=== PATIENT | female | born 1955 | race Caucasian/White ===

== ENCOUNTER → 2021-02-21 10:18 | Outpatient (CLI) | payer MEDICARE, OTHER, SELFPAY ==
--- NOTE | ~2021-02-21 | XR_ITS ---
XR shoulder RT min 2V DATE: 02/21/2021 10:37 INDICATION: Right shoulder pain TECHNIQUE: 4 views COMPARISON: None FINDINGS: Diffuse osteopenia. There is chronic right rotator cuff atrophy, the humeral head abutting and causing a chronic concave impression on the undersurface of the acromion process of the scapula. There is severe osteoarthritic change including joint space narrowing and prominent spurring at the g lenohumeral joint. No fracture or dislocation, periosteal reaction or bone destruction. No abnormal right shoulder soft tissue calcification is evident. IMPRESSION: Chronic rotator cuff atrophy Severe glenohumeral osteoarthritis Diffuse osteopenia Reviewed, dictated and finalized at location A.
== END ==
PROVIDERS: PCP Family Medicine; Visit Provider Family Medicine
DX: M85.811 Other specified disorders of bone density and structure, right shoulder (principal); M19.011 Primary osteoarthritis, right shoulder
CPT/HCPCS: 73030

== ENCOUNTER 2021-03-12 15:20 | Outpatient (CLI) | payer MEDICARE, OTHER, SELFPAY ==
--- NOTE | ~2021-03-12 | MM_ITS ---
EXAMINATION: MM screening robert BI w zari HISTORY: Screening TECHNIQUE: Craniocaudal and mediolateral oblique 3-D tomosynthesis images were obtained and synthetic 2-D images were generated. CAD analysis was submitted and interpreted. COMPARISON: 03/11/2017 BREAST PARENCHYMAL COMPOSITION: There are scattered areas of fibroglandular density. FINDINGS: There is no evidence of suspicious mass, calcification, or architectural distortion to sugg est malignancy in either breast. There has been no suspicious interval change. IMPRESSION: 1. No mammographic evidence of malignancy. 2. Recommend routine screening mammography in one year. BI-RADS Category 1: Negative Reviewed, dictated and finalized at location A.
== END 2021-03-12 15:21 | disposition home or self-care (01) ==
LOC: ANHIMG 15:26
PROVIDERS: PCP Family Medicine; Visit Provider Family Medicine
DX: Z12.31 Encounter for screening mammogram for malignant neoplasm of breast (principal)
CPT/HCPCS: 77063; 77067

== ENCOUNTER 2022-02-28 07:36 | Emergency (ER) | payer MEDICARE, OTHER, SELFPAY ==
--- NOTE | ~2022-02-28 | XR_ITS ---
XR elbow LT min 3V 02/28/2022 08:10 Indication: Left elbow pain after fall Procedure: 4 views left elbow Comparison: No prior studies for comparison. Findings: There is a possible nondisplaced radial head fracture. There is moderate joint effusion. No other fracture identified. No foreign bodies. Impression: 1: Possible nondisplaced radial head fracture. Recommend conservative therapy with follow-up x-rays i n 10-14 days as clinically indicated. Reviewed, dictated and finalized at location A. Impression: 1: Possible nondisplaced radial head fracture. Recommend conservative therapy w ith follow-up x-rays in 10-14 days as clinically indicated.
[2022-02-28 07:39] VITALS: BP 156/88; PULSE 82; RESP 16; TEMP 36.8; O2SAT 100
--- NOTE | 2022-02-28 08:32 | ED.UPPEXIN ---
HPI - Extremity Injury (Upper) General Chief Complaint: Extremity Injury, Upper Stated Complaint: fall left arm Time Seen by Provider: 02/28/22 07:49 Source: patient and RN notes reviewed Mode of arrival: ambulatory Limitations: no limitations History of Present Illness HPI narrative: This is a 67 year old right hand dominant female who presents for evaluation of left elbow pain s/p fall. PAtient states she accidentally fell last night. She hit her left cheek and fell onto her left arm. She denies headache or LOC. She reports pain to her left elbow. She is having difficulty extending her left arm at elbow. She has taken tylenol for her pain Related Data Home Medications Medication Instructions Recorded Confirmed calcium carbonate 600 mg-vitamin cap PO BID 02/20/21 03/07/21 D3 12.5 mcg (500 unit) capsule (Calcium 600 with Vitamin D3) acetaminophen 650 mg 650 mg PO Q12H 03/07/21 03/07/21 tablet,extended release (Tylenol Arthritis Pain) Allergies Allergy/AdvReac Type Severity Reaction Status Date / Time No Known Allergies Allergy Mild Verified 02/28/22 07:46 Review of Systems Review of Systems: All systems reviewed & are unremarkable except as noted in HPI and below Constitutional: Constitutional: Denies chills and Denies fatigue Musculoskeletal: Musculoskeletal: Reports arthralgias Integumentary/Breasts: Skin/Breast: Denies pruritus and Denies erythema Neurologic: Denies syncope, Denies headache(s) and Denies focal weakness PMFSH Past Medical History Medical History (Updated 02/28/22 @ 09:09 by Altagracia Tavares MD) Arthritis of right shoulder region Osteoarthritis (arthritis due to wear and tear of joints) Surgical History Surgical History History of bunionectomy History of hip replacement Family History Family History Mother Family history of osteoarthritis Family history of arthritis Grandparent Family history of cardiovascular disease Father Family history of lung cancer Family history of primary malignant neoplasm of liver Social History Social History Smoking status: Never smoker Second hand tobacco smoke exposure: No Alcohol intake: current Drinks per week: 1 Alcohol use details: wine Substance use: never Substance use type: does not use Gender identity (if verbalized by the patient): Female Spiritual care concerns: No Agree to blood products: Yes Exam Const: General: no acute distress and alert Nutritional Appearance: well nourished Orientation/consciousness: patient oriented x3 Limitations: no limitations HENMT: Head: normal to inspection General nose exam: Normal external nose present Face and sinus: normal facial exam Eyes: Pupils: Equal, round and reactive pupils present EOM: EOMs intact bilaterally Neck: Neck: normal visual inspection Chest: Chest palpation & inspection: normal inspection of the chest Resp: Effort & Inspection: normal respiratory effort Auscultation: clear to auscultation bilaterally Cardio: Rate: regular rate Rhythm: regular rhythm Heart sounds: no murmurs Skin: General skin exam: normal color Rashes: no rashes Wounds: no wounds Neuro: General: patient oriented x3, moves all extremities and CN's II-XI intact bilaterally Cranial nerves: Yes Nystagmus not present Extrem: Other: left elbow pain with supination and extension. mild left elbow swelling, no bruising,; strong radial pulse Psych: Mental Status: mental status grossly normal Affect: normal affect Attitude: cooperative Course Reevaluation(s) Reevaluation #1: I discussed with patient that she has been found to have nondisplaced radial head fracture. She has sen Dr. Diaz in the past and she would like to continue to see him. Dr. Diaz agrees to see patient next week. HE
== END 2022-02-28 09:17 | disposition home or self-care (01) ==
PROVIDERS: Emergency Provider General Practice; PCP Family Medicine
DX: S52.125A Nondisplaced fracture of head of left radius, initial encounter for closed fracture (principal); M19.011 Primary osteoarthritis, right shoulder; Z96.649 Presence of unspecified artificial hip joint; W19.XXXA Unspecified fall, initial encounter
CPT/HCPCS: 29125; 73080; 99284; A4565

== ENCOUNTER 2022-05-28 10:20 | Emergency (ER) | payer MEDICARE, OTHER, SELFPAY ==
[2022-05-28 10:34] VITALS: BP 151/91; PULSE 85; RESP 16; TEMP 36.8; O2SAT 99
--- NOTE | 2022-05-28 10:50 | ED.URI ---
HPI - URI/Sore Throat General Chief Complaint: Upper Respiratory Infection Stated Complaint: verify positive covid test Time Seen by Provider: 05/28/22 10:50 Source: patient and RN notes reviewed Mode of arrival: ambulatory Limitations: no limitations History of Present Illness HPI Narrative: 67 y/o female presented for c/o headache, sinus congestion, mild cough and fatigue for 2 days. She took a negative covid test at home yesterday, and a positive home covid test today. States she wanted to confirm results. Denies sob, wheezing, n/v/d. MD elicited complaint: cough Related Data Home Medications Medication Instructions Recorded Confirmed calcium carbonate 600 mg-vitamin 1 cap PO BID 02/20/21 05/28/22 D3 12.5 mcg (500 unit) capsule (Calcium 600 with Vitamin D3) acetaminophen 650 mg 650 mg PO Q12H 03/07/21 05/28/22 tablet,extended release (Tylenol Arthritis Pain) Allergies Allergy/AdvReac Type Severity Reaction Status Date / Time No Known Allergies Allergy Mild Verified 05/28/22 10:42 Review of Systems Review of Systems: CONSTITUTIONAL: Endorses malaise, chills, sweats, fever EYES: Denies visual changes, redness, or discharge ENT: Per HPI CARDIOVASCULAR: Denies chest pain, palpitations, edema RESPIRATORY: Denies dyspnea GASTROINTESTINAL: Denies abdominal pain, nausea, vomiting, diarrhea SKIN: Denies rash or itching MUSCULOSKELETAL: Endorses myalgia NEUROLOGIC: reports headache PMFSH Past Medical History Medical History Arthritis of right shoulder region Osteoarthritis (arthritis due to wear and tear of joints) Surgical History Surgical History History of bunionectomy History of hip replacement Family History Family History Mother Family history of osteoarthritis Family history of arthritis Grandparent Family history of cardiovascular disease Father Family history of lung cancer Family history of primary malignant neoplasm of liver Social History Social History Smoking status: Never smoker Second hand tobacco smoke exposure: No Alcohol intake: current Drinks per week: 1 Alcohol use details: wine Substance use: never Substance use type: does not use Gender identity (if verbalized by the patient): Female Spiritual care concerns: No Agree to blood products: Yes Exam Narrative: GENERAL: Ill-appearing, nontoxic EYES: PERRLA, conjunctivae clear ENT: Mucous membranes moist. TMs pearly carrasquillo with normallight reflex bilaterally; no tragal tenderness. Oropharynx erythematous without lesions or exudate, no drooling, no hoarseness, no trismus, uvula midline. NECK: Supple. No lymphadenopathy CHEST: Clear to auscultation, breath sounds equal. HEART: Regular rate and rhythm. No murmur heard. SKIN: Warm, dry, no rash. NEURO: Alert and oriented x3. PSYCH: Normal mood and affect Course Course Emergency Course: Patient is aware of diagnosis, understands and agrees to treatment plan. Anticipatory guidance given. Patient agrees to follow-up as directed and is aware of reasons to seek care at the emergency department. Portions of this record may have been created with voice recognition software Level of Care: Express Care Visit Vital Signs Vital signs: Vital Signs Temperature 98.3 F 05/28/22 10:34 Pulse Rate 85 05/28/22 10:34 Respiratory Rate 16 05/28/22 10:34 Blood Pressure 151/91 H 05/28/22 10:34 Pulse Oximetry 99 05/28/22 10:34 Temperature 98.3 F 05/28/22 10:34 Pulse Rate 85 05/28/22 10:34 Respiratory Rate 16 05/28/22 10:34 Blood Pressure 151/91 H 05/28/22 10:34 Pulse Oximetry 99 05/28/22 10:34 reviewed MDM - URI/Sore Throat MDM Narrative Medical decision making narrative: Covid positive. Resul
== END 2022-05-28 11:00 | disposition home or self-care (01) ==
PROVIDERS: Emergency Provider Nurse Practitioner Family
DX: U07.1 COVID-19 (principal); M19.011 Primary osteoarthritis, right shoulder; Z96.649 Presence of unspecified artificial hip joint
CPT/HCPCS: 87426; 99213; C9803; G0463

== ENCOUNTER 2022-06-28 09:27 | Outpatient (CLI) | payer MEDICARE, OTHER, SELFPAY ==
--- NOTE | ~2022-06-28 | MM_ITS ---
EXAMINATION: MM screening robert BI w zari HISTORY: Screening mammogram TECHNIQUE: Craniocaudal and mediolateral oblique 3-D tomosynthesis images were obtained and synthetic 2-D images were generated. CAD analysis was submitted and interpreted. COMPARISON: 03/12/2021, 03/11/2017 bilateral screening mammogram examinations BREAST PARENCHYMAL COMPOSITION: There are scattered areas of fibroglandular density. FINDINGS: There is no evidence of suspicious mass, calcification, or architectural distortion to sugg est malignancy in either breast. There has been no suspicious interval change. IMPRESSION: 1. No mammographic evidence of malignancy. 2. Recommend routine screening mammography in one year. BI-RADS Category 1: Negative Reviewed, dictated and finalized at location A. [employer]
== END 2022-06-28 09:28 | disposition home or self-care (01) ==
LOC: ANHIMG 09:29
PROVIDERS: PCP Family Medicine; Visit Provider Family Medicine
DX: Z12.31 Encounter for screening mammogram for malignant neoplasm of breast (principal)
CPT/HCPCS: 77063; 77067

== ENCOUNTER 2024-03-01 08:54 | Outpatient (CLI) | payer MEDICARE, OTHER, SELFPAY ==
--- NOTE | ~2024-03-01 | MM_ITS ---
EXAMINATION: MM screening robert BI w zari HISTORY: Screening TECHNIQUE: Craniocaudal and mediolateral oblique 3-D tomosynthesis images were obtained and synthetic 2-D images were generated. CAD analysis was submitted and interpreted. COMPARISON: Comparison to multiple prior studies sequentially, with oldest reviewed study dated 09/2016. BREAST PARENCHYMAL COMPOSITION: Not dense: There are scattered areas of fibroglandular density. FINDINGS: There is no evidence of suspicious mass, calcification, or architectural distortion to sugg est malignancy in either breast. There has been no suspicious interval change. IMPRESSION: 1. No mammographic evidence of malignancy. 2. Recommend routine screening mammography in one year. BI-RADS Category 1: Negative Reviewed, dictated and finalized at location B.
== END 2024-03-01 08:55 | disposition home or self-care (01) ==
LOC: ANHIMG 08:57
PROVIDERS: PCP Emergency Medicine; Visit Provider Emergency Medicine
DX: Z12.31 Encounter for screening mammogram for malignant neoplasm of breast (principal)
CPT/HCPCS: 77063; 77067